=== PATIENT | female | born 2000 | race Caucasian/White ===

== ENCOUNTER 2021-08-16 10:43 | Emergency (ER) | payer OTHER ==
[2021-08-16 11:30] LABS: HEMOGLOBIN 13.6 gm/dl (12.3-15.3); RED BLOOD COUNT 4.67 M/UL (4.00-5.10); WHITE BLOOD COUNT 7.4 K/UL (4.5-11.0)
[2021-08-16 11:49] LABS: BUN/CREATININE RATIO 14 (0-10)
[2021-08-16] MEDS ORDERED: ZOFRAN4 MG PO (14:24)
== END 2021-08-16 14:32 | disposition home or self-care (01) ==
LOC: ER1 10:43
DX: R10.31 Right lower quadrant pain (principal)
CPT/HCPCS: 80053; 81001; 83690; 84703; 85025; 96374; 99284; J2405; Q9967